=== PATIENT | female | born 1990 | race Hispanic/Latino ===

== ENCOUNTER 2021-11-28 01:14 | Emergency (ER) | payer OTHER ==
[~2021-11-28] VITALS: Ht 165.1 cm; Wt 127.0 kg
[2021-11-28] MEDS ORDERED: KETOROLAC TROMETHAMINE 60 MG/2 ML VIAL IM ONE (01:30)
[2021-11-28] MEDS ORDERED: KETOROLAC TROMETHAMINE 60 MG/2 ML VIAL ONE (01:32)
[2021-11-28] MEDS ORDERED: PREDNISONE20 MG PO (02:07)
[2021-11-28] MEDS ORDERED: ULTRAM 50MG50 MG PO (02:08)
== END 2021-11-28 02:11 | disposition home or self-care (01) ==
LOC: ER 01:18
DX: M79.632 Pain in left forearm (principal); X50.1XXA Overexertion from prolonged static or awkward postures, initial encounter; Y92.89 Other specified places as the place of occurrence of the external cause
CPT/HCPCS: 73090; 99283; J1885